=== PATIENT | male | born 1970 | race Caucasian/White ===

== ENCOUNTER 2016-05-31 17:30 | Emergency (ER) | payer BC ==
[~2016-05-31] VITALS: Ht 175.3 cm; Wt 80.7 kg
[2016-05-31] MEDS ORDERED: AMOXICILLIN-CLAVUL 500-125MG TABLET PO ONE (17:45)
[2016-05-31] MEDS ORDERED: TDAP DIPH,PERTUSS,TET VAC/PF 0.5 ML DISP.SYRIN IM ONE ×2 (17:45→17:55)
[2016-05-31] MEDS ORDERED: NEOMY/BACITRA/POLYMYXIN B OINT UD PACKET TP ONE ×2 (17:45→18:23)
[2016-05-31] MEDS ORDERED: LIDOCAINE HCL 1% 20 ML VIAL TP ONE (17:45)
--- NOTE | 2016-05-31 17:47 | NUR ---
Pt c/o bites from his dogs, approx 2cm lac on right thigh just above his knee, approx 15mm on left palm, and approx 7mm on outer edge of left palm. PMS intact all extremities, cap refill left fingers <2 sec. No other complaints, no distress noted.
[2016-05-31] MEDS ORDERED: AMOXICILLIN-CLAVUL 500-125MG TABLET ONE (18:24)
--- NOTE | 2016-05-31 18:41 | NUR ---
Cleaned wounds w/NS, applied ABx ointment. Dressed and wrapped left hand w/kerlix, placed in Collies splint, secured with elastic bandage. Bandaged right knee w/border gauze. Pt signed tetanus consent.
--- NOTE | 2016-05-31 18:45 | NUR ---
Gave pt RX and d/c instructions, verbalized understanding.
== END 2016-05-31 18:52 | disposition home or self-care (01) ==
LOC: ER 17:32
DX: S61.412A Laceration without foreign body of left hand, initial encounter (principal); S61.432A Puncture wound without foreign body of left hand, initial encounter; W54.0XXA Bitten by dog, initial encounter; Y93.89 Activity, other specified; Y99.8 Other external cause status; Y92.89 Other specified places as the place of occurrence of the external cause
CPT/HCPCS: 12002; 90471; 90715; 99283; A4217; A4663; J3490

== ENCOUNTER 2019-09-17 18:43 | Emergency (ER) | payer BC ==
[~2019-09-17] VITALS: Ht 175.3 cm; Wt 81.6 kg
[2019-09-17] MEDS ORDERED: ONDANSETRON 4 MG/2 ML VIAL ONE (18:59)
[2019-09-17] MEDS ORDERED: HYDROMORPHONE 1 MG/1 ML DISP.SYRIN ONE ×4 (18:59→20:03)
[2019-09-17] MEDS ORDERED: HYDROMORPHONE 1 MG/1 ML DISP.SYRIN IV ONE ×4 (19:00→20:15)
[2019-09-17] MEDS ORDERED: ONDANSETRON 4 MG/2 ML VIAL IV ONE (19:00)
--- NOTE | 2019-09-17 19:05 | NUR ---
PT IS IN ROOM #2A. DR BARRERA EAVLUATED THE PT.
[2019-09-17] MEDS ORDERED: ETOMIDATE 20 MG/10 ML VIAL ONE ×2 (19:17→20:09)
--- NOTE | 2019-09-17 19:17 | NUR ---
Consent for right shoulder reduction and moderate sedation signed and placed in chart vitals pre procedure: 145/90, 105 HR, 99% on 2 liters nasal cannula, 21 repirations 15 mg of Etomidate given IV push, 500 ML of Normal saline bolus being given in left IV 20g
--- NOTE | 2019-09-17 19:30 | NUR ---
vitals: 172/102, 96HR, 100% on 5 liters, 20 respirations 1 mg of Dilaudid IV push given for pain level 10/10
--- NOTE | 2019-09-17 19:38 | NUR ---
vitals: 188/100, 101 HR, 100% on 6 liters
--- NOTE | 2019-09-17 19:46 | NUR ---
1 mg of Dilaudid given IV push for pain level 10/10 in right shoulder
--- NOTE | 2019-09-17 19:57 | NUR ---
vitals: 171/89, 100% on 6 liters nasal cannula, 108HR
--- NOTE | 2019-09-17 20:02 | NUR ---
1 mg of Dilaudid given IV push vitals: 172/85, 100% on 6 liters Nasal cannula, 97 HR
[2019-09-17] MEDS ORDERED: ETOMIDATE 20 MG/10 ML VIAL IV ONE ×2 (20:15)
--- NOTE | 2019-09-17 20:20 | NUR ---
vitals: 183/107, 104HR, 100% on 6 liters nasal cannula
--- NOTE | 2019-09-17 20:45 | NUR ---
MD Bolaños reduced right shoulder at this time, 20 of Etomidate given IV push nelly;s: 154/79, 100% on 6 liters nasal cannula, 103 HR
--- NOTE | 2019-09-17 20:54 | NUR ---
Narcan 0.4mg/mL given IV push
[2019-09-17] MEDS ORDERED: NALOXONE HCL 0.4 MG/ML AMPUL ONE (20:56)
[2019-09-17] MEDS ORDERED: NALOXONE HCL 0.4 MG/ML AMPUL IV ONE (21:15)
--- NOTE | 2019-09-17 22:14 | NUR ---
Patient discharged to home in stable condition. sling applied to right arm and shoulder. instructed noted to move right arm and shoulder and to follow up ith MD ro (ortho) Written and verbal after care instructions given. Patient verbalizes understanding of instructions. Stressed follow up or return to ER for worsening s/s. Rx given, instructed not to driven, fiance picked patient up in vehicle
[2019-09-17 22:16] VITALS: BP 150/85
== END 2019-09-17 22:13 | disposition home or self-care (01) ==
LOC: ER 18:45
DX: M24.411 Recurrent dislocation, right shoulder (principal); T14.90XS Injury, unspecified, sequela; W18.39XS Other fall on same level, sequela
CPT/HCPCS: 23650 ×2; 73020 ×3; 96374; 96375; 96376; 99152 ×2; 99285; J1170 ×4; J2310; J2405; J3490 ×3; A4663; G0500; J7040